=== PATIENT | male | born 1995 | race Hispanic/Latino ===

== ENCOUNTER → 2018-02-13 | Outpatient (CLI) | payer MEDICAID | END | disposition home or self-care (01) | LOC: OIH 09:53 | PROVIDERS: ATTEND Family Medicine | DX: F90.9 Attention-deficit hyperactivity disorder, unspecified type (principal); F71 Moderate intellectual disabilities | CPT/HCPCS: 71046 ==

== ENCOUNTER 2018-08-20 18:28 | Emergency (ER) | payer MEDICAID ==
[2018-08-20] MEDS ORDERED: KETOROLAC TROMETHAMINE 15MG/ML ONE (18:46)
[2018-08-20 19:16] LABS: BASOPHILS % (AUTO) 0.3 % (0.0-5.0); EOSINOPHILS % (AUTO) 0.1 % (0.0-8.0); HEMATOCRIT 39.2 % (42-54); LYMPHOCYTES % (AUTO) 6.7 % (21.0-51.0); MEAN CORPUSCULAR HEMOGLOBIN 34.3 pg (27.0-33.0); MEAN CORPUSCULAR HGB CONC 35.3 g/dL (32.0-36.0); MEAN CORPUSCULAR VOLUME 97.1 fL (80-100); MONOCYTES % (AUTO) 6.3 % (3.0-13.0); NEUTROPHILS % (AUTO) 86.6 % (40.0-77.0); PLATELET COUNT (AUTO) 237 K/uL (130-400); RED BLOOD CELL COUNT(AUTO) 4.04 MIL/uL (4.50-6.20); RED CELL DISTRIBUTION WIDTH 13.8 % (11.0-15.5); WHITE BLOOD COUNT (AUTO) 9.2 K/uL (4.8-10.8)
[2018-08-20 19:27] LABS: CREATININE 1.1 mg/dL (0.5-1.5)
[2018-08-20 19:29] LABS: APPEARANCE,URINE Clear (CLEAR); BILIRUBIN,URINE Negative (NEGATIVE); COLOR,URINE Yellow (YELLOW); GLUCOSE, URINE (UA) 250 mg/dL (NEGATIVE); KETONES,URINE Negative (NEGATIVE); LEUKOCYTE ESTERASE ,URINE Negative (NEGATIVE); NITRATE,URINE Negative (NEGATIVE); OCCULT BLOOD,URINE Trace (NEGATIVE); PH,URINE 5.5 (5.0-8.0); PROTEIN,URINE Negative (NEGATIVE); UROBILINOGEN,URINE 0.2 mg/dL (0.2-1.0)
[2018-08-20 19:32] LABS: ALBUMIN 3.9 g/dL (3.5-5.0); BILIRUBIN,TOTAL 0.3 mg/dL (0.2-1.0)
[2018-08-20] MEDS ORDERED: IOHEXOL-350 75 ML VIAL IV ONE (19:36)
[2018-08-20 19:44] LABS: INR 0.97 (0.85-1.15); PROTHROMBIN TIME 10.2 SEC (9.6-11.6)
[2018-08-20 19:55] LABS: WBC,URINE 0-1 /HPF (0-1)
[2018-08-20 19:56] LABS: BACTERIA,URINE Few /HPF (None Seen); MUCUS,URINE Rare LPF (None Seen); SQUAMOUS EPITHELIAL CELL,UR 0-2 /HPF (0-2)
[2018-08-20 20:03] LABS: BAND NEUTROPHILS % (MANUAL) 9 % (0-2); LYMPHOCYTES % (MANUAL) 2 % (22-44); MAN.DIFF COMMENT-IMPRESSION MANUAL DIFFERENTIAL; METAMYELOCYTES % 1 % (0-0); MONOCYTES % (MANUAL) 3 % (2-9); REACTIVE LYMPHOCYTES 1 % (0-0); SEGMENTED NEUTROPHILS % 84 % (40-70)
[2018-08-20 20:04] LABS: PLATELET MORPHOLOGY COMMENT ADEQUATE
== END 2018-08-20 20:42 | disposition home or self-care (01) ==
LOC: EDH 18:28
DX: K59.00 Constipation, unspecified (principal)
CPT/HCPCS: 36415; 74177; 80053; 81001; 83690; 85025; 85610; 85730; 96374; 99284; J1885; Q9967

== ENCOUNTER 2019-06-01 09:46 | Emergency (ER) | payer MEDICAID ==
[2019-06-01] MEDS ORDERED: GUAIFENESIN-DM 200/20 MG 10 ML ONE (10:26)
[2019-06-01 10:44] LABS: BASOPHILS % (AUTO) 0.6 % (0.0-5.0); EOSINOPHILS % (AUTO) 0.2 % (0.0-8.0); MEAN CORPUSCULAR HEMOGLOBIN 32.9 pg (27.0-33.0); MEAN CORPUSCULAR VOLUME 96.7 fL (79-99); MONOCYTES % (AUTO) 5.9 % (3.0-13.0); NEUTROPHILS % (AUTO) 61.4 % (40.0-77.0); PLATELET COUNT (AUTO) 172 K/uL (130-400); RED BLOOD CELL COUNT(AUTO) 3.62 MIL/uL (4.50-6.20); RED CELL DISTRIBUTION WIDTH 13.2 % (11.0-15.5); WHITE BLOOD COUNT (AUTO) 4.9 K/uL (4.8-10.8)
[2019-06-01] MEDS ORDERED: IPRATROPIUM/ALBUTEROL SULFATE 3 ML SOLUTION IH ONE (10:49)
[2019-06-01 10:58] LABS: CREATININE 1.1 mg/dL (0.5-1.5); POTASSIUM 4.5 mmol/L (3.5-5.1)
[2019-06-01 11:03] LABS: ALBUMIN 3.4 g/dL (3.5-5.0); BILIRUBIN,TOTAL 0.2 mg/dL (0.2-1.0); TOTAL PROTEIN, SERUM 7.7 g/dL (6.0-8.3)
== END 2019-06-01 12:11 | disposition home or self-care (01) ==
LOC: EDH 09:46
DX: J11.1 Influenza due to unidentified influenza virus with other respiratory manifestations (principal); Q90.9 Down syndrome, unspecified
CPT/HCPCS: 36415; 71046; 80053; 85025; 94640

== ENCOUNTER → 2020-02-23 | Outpatient (CLI) | payer MEDICAID | END | disposition home or self-care (01) | LOC: RAH 10:04 | PROVIDERS: ATTEND Family Medicine | DX: R53.83 Other fatigue (principal); Q90.9 Down syndrome, unspecified | CPT/HCPCS: 93306; 93356 ==

== ENCOUNTER 2022-09-15 08:40 | Emergency (ER) | payer MEDICAID ==
[~2022-09-15] VITALS: Ht 167.6 cm; Wt 90.7 kg
[2022-09-15 10:46] VITALS: BP 139/80
[2022-09-15] MEDS ORDERED: IBUP-2070 PO (11:40)
== END 2022-09-15 12:10 | disposition home or self-care (01) ==
LOC: EDH 08:40
DX: M79.672 Pain in left foot (principal); F41.9 Anxiety disorder, unspecified
CPT/HCPCS: 73502; 73610; 73630